=== PATIENT | male | born 1990 | race Caucasian/White ===

== ENCOUNTER 2017-02-01 05:52 | Day surgery (SDC) | payer BC ==
[2017-01-17 10:21] VITALS: BMI 31.8
[2017-02-01] MEDS ORDERED: Bupivacaine HCl 0.5%/Epinephrine 1:200,000/PF 30 ml Vial ONE (06:29)
[2017-02-01] MEDS ORDERED: Fentanyl 250 MCG/5 ML VIAL ONE (06:51)
[2017-02-01] MEDS ORDERED: Midazolam HCl 2 mg/2 ml Vial ONE (07:06)
[2017-02-01] MEDS ORDERED: Glycopyrrolate 0.2 MG/ML 5 ML SYRINGE ONE (07:42)
[2017-02-01] MEDS ORDERED: Lidocaine 2% PF 10 ML AMP (For Epidural Use) ONE (07:42)
[2017-02-01] MEDS ORDERED: Ketorolac Tromethamine 30 MG/ML VIAL ONE (07:42)
[2017-02-01] MEDS ORDERED: Dexamethasone 20 MG/5 ML VIAL ONE (07:42)
[2017-02-01] MEDS ORDERED: Ondansetron HCl/PF 4 MG/2 ML Vial ONE (07:42)
[2017-02-01] MEDS ORDERED: Propofol 200 MG/20 ML VIAL ONE (07:42)
[2017-02-01] MEDS ORDERED: HYDROcodone/Acetaminophen 5/325 mg Tablet ONE (10:54)
--- NOTE | 2017-02-02 10:53 | OP ---
PREOPERATIVE DIAGNOSIS: Right inguinal hernia. POSTOPERATIVE DIAGNOSIS: Right inguinal hernia. PROCEDURE: Da Emma laparoscopic right inguinal hernia repair with mesh, 3DMax large. SURGEON: Myles Yan M.D. ANESTHESIA: General. ESTIMATED BLOOD LOSS: Minimal. COMPLICATIONS: None. SPECIMEN: None. FINDINGS: Right inguinal hernia. TECHNIQUE: The patient was taken to the operating room table. After general anesthetic was obtaine d, a De La O was placed. The abdomen was shaved, prepped, and draped in a sterile fashion. Curved in cision made below the umbilicus. Cautery was used to dissect down to and score the fascia. Abdomin al cavity was entered bluntly using a Sharri clamp. Holding stitch of PDS was placed on each side of the fascia. A 12-mm port is placed and high-flow pneumoperitoneum was obtained. Left and right ab dominal 8-mm robot ports were placed. All ports were docked to the robot. The surgeon goes to the console. The peritoneum was taken down in the right groin above the level of the hernia. Dissectio n was performed in the preperitoneal space. The indirect hernia sac was dissected out of the indire ct defect. Dissection was taken all the way down to the pubic tubercle medially and all the way to anterior superior iliac crest laterally. The cord structures were skeletonized and the indirect sac was dissected all the way up high on the peritoneum. There was no direct defect. A 3DMax large me sh brought into the sterile field, placed in the right groin preperitoneal space. The end-labeled m edial aspect was placed over Donald's ligament medially, 2-0 Vicryl was used to suture the mesh medi ally and laterally. No sutures were placed in the triangle of pain, the triangle of doom. Thus, th e peritoneum was reapproximated using running 3-0 Stratafix. All port sites were infiltrated using local anesthetic. All ports were removed under camera visualization. Pneumoperitoneum was let down . PDS was used to close the fascial defect above the umbilicus. All incisions were irrigated and c losed using 4-0 Monocryl and Dermabond. The patient was en route to recovery in stable condition. All instrument counts, needle counts, and lap counts were correct.
== END 2017-02-01 11:31 | disposition home or self-care (01) ==
LOC: SDC 05:52
PROVIDERS: ATTEND Surgery
PROC: 0YU54JZ Supplement Right Inguinal Region with Synthetic Substitute, Percutaneous Endoscopic Approach (ICD-10-PCS; principal; 2017-02-01)
DX: K40.90 Unilateral inguinal hernia, without obstruction or gangrene, not specified as recurrent (principal); F17.210 Nicotine dependence, cigarettes, uncomplicated; F41.9 Anxiety disorder, unspecified; E66.9 Obesity, unspecified; Z68.31 Body mass index [BMI] 31.0-31.9, adult; Z98.890 Other specified postprocedural states
CPT/HCPCS: C1781; J0670; J1100; J1885; J2001; J2250; J2405; J2704; J3010